=== PATIENT | female | born 1970 | race Two or more races ===

== ENCOUNTER 2017-08-12 11:13 | Inpatient (IN) | payer MEDICAID ==
[2017-08-12] MEDS ORDERED: MORPHINE SULFATE 10 MG/ML INJ IV ONE (11:42)
--- NOTE | 2017-08-12 11:43 | ER Document Report ---
ED Medical Screen (RME) - General Chief Complaint: Abdominal Pain Stated Complaint: ABDOMINAL PAIN Time Seen by Provider: 08/12/17 11:38 Notes: Patient is a 47-year-old female who presents with 2 days of abdominal pain. Initially started left upper quadrant, but has now spread diffusely. Vomited once yesterday, but no longer nauseous. PE: Uncomfortable. Diffuse abdominal tenderness. Normal bowel sounds. I have greeted and performed a rapid initial assessment of this patient. A comprehensive ED assessment and evaluation of the patient, analysis of test results and completion of the medical decision making process will be conducted by additional ED providers. TRAVEL OUTSIDE OF THE [place] IN LAST 30 DAYS: No - Related Data Allergies/Adverse Reactions: No Known Allergies Allergy (Verified 08/12/17 11:34) Past Medical History - Social History Chew tobacco use (# tins/day): No Frequency of alcohol use: None Drug Abuse: None Renal/ Medical History: Denies: Hx Peritoneal Dialysis Physical Exam - Vital signs Vitals: Temp Pulse Resp BP Pulse Ox 98.0 F 87 12 116/80 100 08/12/17 11:26 08/12/17 11:26 08/12/17 11:26 08/12/17 11:26 08/12/17 11:26 Course - Vital Signs Vital signs: Temp Pulse Resp BP Pulse Ox 98.0 F 87 12 116/80 100 08/12/17 11:26 08/12/17 11:26 08/12/17 11:26 08/12/17 11:26 08/12/17 11:26
[2017-08-12] MEDS ORDERED: HYDROMORPHONE HCL INJ/PF 2 MG/ML AMPULE IV ONE (11:54)
[2017-08-12 12:13] LABS: ABSOLUTE BASOPHILS # (AUTO) 0.1 10^3/uL (0.0-0.2); ABSOLUTE EOSINOPHILS # (AUTO) 0.1 10^3/uL (0.0-0.6); ABSOLUTE LYMPHOCYTES (AUTO) 1.1 10^3/uL (0.5-4.7); ABSOLUTE MONOCYTES (AUTO) 0.4 10^3/uL (0.1-1.4); BASOPHILS % (AUTO) 0.5 % (0-2); EOSINOPHILS % (AUTO) 1.1 % (0-6); HEMATOCRIT 34.6 % (36.0-47.0); HEMOGLOBIN 11.3 g/dL (12.0-15.5); LYMPHOCYTES % (AUTO) 11.3 % (13-45); MEAN CORPUSCULAR HEMOGLOBIN 28.9 pg (27.0-33.4); MEAN CORPUSCULAR HGB CONC 32.8 g/dL (32.0-36.0); MEAN CORPUSCULAR VOLUME 88 fl (80-97); PLATELET COUNT 211 10^3/uL (150-450); RED BLOOD COUNT 3.93 10^6/uL (3.72-5.28); SEGMENTED NEUTROPHILS % (AUTO) 83.1 % (42-78); TOTAL CELLS COUNTED % (AUTO) 100 %; WHITE BLOOD COUNT 9.6 10^3/uL (4.0-10.5)
[2017-08-12 12:35] LABS: ALANINE AMINOTRANSFERASE 27 U/L (9-52); ALBUMIN 4.2 g/dL (3.5-5.0); ALKALINE PHOSPHATASE 37 U/L (38-126); ANION GAP 9 (5-19); ASPARTATE AMINO TRANSFERASE 19 U/L (14-36); BILIRUBIN,DIRECT 0.1 mg/dL (0.0-0.4); BILIRUBIN,TOTAL 0.6 mg/dL (0.2-1.3); BLOOD UREA NITROGEN 13 mg/dL (7-20); CALCIUM 9.3 mg/dL (8.4-10.2); CARBON DIOXIDE 30 mmol/L (22-30); CHLORIDE 105 mmol/L (98-107); GLUCOSE 98 mg/dL (75-110); LIPASE 76.2 U/L (23-300); POTASSIUM 3.8 mmol/L (3.6-5.0); SODIUM 143.7 mmol/L (137-145)
[2017-08-12] MEDS ORDERED: ONDANSETRON HCL INJ/PF 4 MG/2 ML SDV ONE (12:46)
[2017-08-12] MEDS ORDERED: NEOSTIGMINE METHYLSULFATE 10 MG/10 ML VIAL ONE (12:46)
[2017-08-12] MEDS ORDERED: SUCCINYLCHOLINE CHLORIDE INJ 200 MG/10 ML VIAL ONE (12:46)
[2017-08-12] MEDS ORDERED: GLYCOPYRROLATE INJ 0.4 MG/2 ML VIAL ONE (12:46)
[2017-08-12] MEDS ORDERED: ROCURONIUM BROMIDE INJ 50 MG/5 ML VIAL IV ONE (12:46)
--- NOTE | 2017-08-12 12:51 | ER Document Report ---
ED General - General Chief Complaint: Abdominal Pain Stated Complaint: ABDOMINAL PAIN Time Seen by Provider: 08/12/17 11:38 Mode of Arrival: Ambulatory Information source: Patient Notes: 47-year-old female presents with complaints of abdominal pain that started last night. Patient notes last night is in left upper quadrant, now notes that the pain has become generalized all throughout. She denies any fevers or chills admits to mild nausea without vomiting. Patient denies any urinary complaints TRAVEL OUTSIDE OF THE [place] IN LAST 30 DAYS: No - HPI Onset: Yesterday Onset/Duration: Sudden Quality of pain: Cramping, Sharp Severity: Mild Pain Level: 2 Associated symptoms: Nausea, Other Exacerbated by: Denies Relieved by: Denies Similar symptoms previously: No Recently seen / treated by doctor: No - Related Data Allergies/Adverse Reactions: No Known Allergies Allergy (Verified 08/12/17 11:34) Past Medical History - Social History Smoking Status: Never Smoker Cigarette use (# per day): No Chew tobacco use (# tins/day): No Smoking Education Provided: No Frequency of alcohol use: None Drug Abuse: None Family History: Reviewed & Not Pertinent Patient has suicidal ideation: No Patient has homicidal ideation: No Renal/ Medical History: Denies: Hx Peritoneal Dialysis Past Surgical History: Reports: Hx Abdominal Surgery - ovary removal Review of Systems - Review of Systems Notes: REVIEW OF SYSTEMS: CONSTITUTIONAL : Denies fever, chills, or sweats. Denies recent illness. EENT: Denies eye, ear, throat, or mouth pain or symptoms. Denies nasal or sinus congestion or discharge. Denies throat, tongue, or mouth swelling or difficulty swallowing. CARDIOVASCULAR: Denies chest pain. Denies palpitations or racing or irregular heart beat. Denies ankle edema. RESPIRATORY: Denies cough, cold, or chest congestion. Denies shortness of breath, difficulty breathing, or wheezing. GASTROINTESTINAL: generalized abd pain. GENITOURINARY: Denies difficulty urinating, painful urination, burning, frequency, blood in urine, or discharge. FEMALE GENITOURINARY: Denies vaginal bleeding, heavy or abnormal periods, irregular periods. Denies vaginal discharge or odor. MUSCULOSKELETAL: Denies back or neck pain or stiffness. Denies joint pain or swelling. SKIN: Denies rash, lesions or sores. HEMATOLOGIC : Denies easy bruising or bleeding. LYMPHATIC: Denies swollen, enlarged glands. NEUROLOGICAL: Denies confusion or altered mental status. Denies passing out or loss of consciousness. Denies dizziness or lightheadedness. Denies headache. Denies weakness or paralysis or loss of use of either side. Denies problems with gait or speech. Denies sensory loss, numbness, or tingling. Denies seizures. PSYCHIATRIC: Denies anxiety or stress. Denies depression, suicidal ideation, or homicidal ideation. ALL OTHER SYSTEMS REVIEWED AND NEGATIVE. PHYSICAL EXAMINATION: GENERAL: Well-appearing, well-nourished and in no acute distress. HEAD: Atraumatic, normocephalic. EYES: Pupils equal round and reactive to light, extraocular movements intact, conjunctiva are normal. ENT: Nares patent, oropharynx clear without exudates. Moist mucous membranes. NECK: Normal range of motion, supple without lymphadenopathy LUNGS: Breath sounds clear to auscultation bilaterally and equal. No wheezes rales or rhonchi. HEART: Regular rate and rhythm without murmurs ABDOMEN: guarding generalized tenderness all throughout worsened left upper quadrant. Female : deferred Musculoskeletal: Normal range of motion, no pitting or edema. No cyanosis. NEUROLOGICAL: Cranial nerves grossly intact. Normal speech, normal gait. Normal sensory, motor exams PSYCH: Normal mood, normal affect. SKIN: Warm, Dry, normal turgor, no rashes or lesions noted. Dictation was performed using [employer] voice recognition software Physical Exam - Vital signs Vitals: Temp Pulse Resp BP Pulse Ox 98.0 F 87 12 116/80 100 08/12/17 11:26 08/12/17 11:26 08/12/17 11:26 08/12/17 11:26 08/12/17 11:26 Course - Re-evaluation Re-evalutation: 08/12/17 12:51 Patient's lab work thus far is benign however she does have generalized abdominal pain CT has been ordered to rule out any intra-abdominal issue 08/12/17 14:55 Dr Tammie oneill, he will evaluate 08/12/17 15:[address] is concerning for an intra-abdominal bleed, source is unknown at this time, the surgeon will take the patient to the operating room immediately to evaluate with expiratory laparotomy - Vital Signs Vital signs: Temp Pulse Resp BP Pulse Ox 98.0 F 87 12 116/80 100 08/12/17 11:26 08/12/17 11:26 08/12/17 11:26 08/12/17 11:26 08/12/17 11:26 - Laboratory Result Diagrams: 08/12/17 11:55 08/12/17 11:55 Laboratory results interpreted by me: 08/12/17 08/12/17 08/12/17 11:55 11:55 13:00 Hgb 11.3 L Hct 34.6 L Seg Neutrophils % 83.1 H Lymphocytes % 11.3 L Alkaline Phosphatase 37 L Urine Ketones TRACE H Urine Ascorbic Acid 20 H - Diagnostic Test Radiology reviewed: Image reviewed - Free fluid noted in abdomen on CT abdomen with oral and IV contrast, Reports reviewed Discharge - Discharge Clinical Impression: Free fluid in the abdomen, Intra abdominal hemorrhage Condition: Critical Disposition: ADMITTED INPATIENT Admitting Provider: Surgicalist Unit Admitted: [facility]
[2017-08-12 13:44] LABS: APPEARANCE,URINE SLIGHTLY-CLOUDY; BILIRUBIN,URINE NEGATIVE (NEGATIVE); COLOR,URINE YELLOW; GLUCOSE, URINE NEGATIVE (NEGATIVE); KETONES,URINE TRACE mg/dL (NEGATIVE); LEUKOCYTE ESTERASE,URINE NEGATIVE (NEGATIVE); NITRITE,URINE NEGATIVE (NEGATIVE); PROTEIN,URINE NEGATIVE (NEGATIVE); URINE SPECIFIC GRAVITY 1.025; UROBILINOGEN,URINE NEGATIVE mg/dL (<2.0)
--- NOTE | 2017-08-12 15:00 | RADIOLOGY REPORT (SQ) ---
EXAM DESCRIPTION: CT ABD/PELVIS WITH IV ORAL COMPLETED DATE/TIME: 08/12/2017 2:41 pm REASON FOR STUDY: LUQ, LLQ, RLQ pain and tenderness COMPARISON: None. TECHNIQUE: CT scan of the abdomen and pelvis performed using helical scanning technique with dynamic intravenous contrast injection. Patient drank a small amount of oral contrast. Images reviewed with lung, soft tissue, and bone windows. Reconstructed coronal and sagittal MPR images reviewed. Delayed images for evaluation of the urinary system also acquired. All images stored on PACS. All CT scanners at this facility use dose modulation, iterative reconstruction, and/or weight based d osing when appropriate to reduce radiation dose to as low as reasonably achievable (ALARA). [facility]: Dose Right [facility]: CareDose [facility]: Dose Right [facility]: Teradose 4D [facility]: GiftLauncher CONTRAST TYPE AND DOSE: contrast/concentration: Isovue 370.00 mg/ml; Total Contrast Delivered: 69.0 ml; Total Saline Delivered: 52.1 ml RENAL FUNCTION: Creatinine 0.66 RADIATION DOSE: CT Rad equipment meets quality standard of care and radiation dose reduction techniq ues were employed. CTDIvol: NaN - NaN mGy. DLP: 0 mGy-cm.. LIMITATIONS: None. FINDINGS: In the left upper quadrant, between loops of bowel along the greater curvature of stomach, intermediate density fluid collection is present, 10 cm craniocaudad by 7.4 cm AP x 5.2 cm transvers e. This measures 75 Hounsfield units in density and is worrisome for hematoma or blood. No fluid fl uid level with IV contrast to suggest active extravasation at this time. There is a small to moderate amount of fluid under the right hemidiaphragm between the liver and diap hragm, along the right and left pericolic gutters, and throughout the pelvic cul-de-sac. In the right adnexa, a 6 cm diameter enhancing mass is present, most likely a pedunculated fibroid of f the rightward dorsal uterus. A right ovarian mass or hematoma could not be excluded. Patient's HC G is negative, making ruptured ectopic unlikely. These findings were discussed with Dr. Kristen mitchell in the emergency room, 1445 hours 08/12/2017. There is no free intraperitoneal air. LOWER CHEST: No significant findings. No nodules or infiltrates. LIVER: Normal size. No biliary ductal dilatation. subcentimeter cysts are present in the left and r ight lobe liver. Normal enhancement of the main portal vein and hepatic veins. SPLEEN: Normal size. No focal lesions. PANCREAS: No masses. No significant calcifications. No adjacent inflammation or peripancreatic fluid collections. Pancreatic duct not dilated. GALLBLADDER: No identified stones by CT criteria. No inflammatory changes to suggest cholecystitis. ADRENAL GLANDS: No significant masses or asymmetry. RIGHT KIDNEY AND URETER: No solid masses. No significant calcifications. No hydronephrosis or hyd roureter. LEFT KIDNEY AND URETER: No solid masses. No significant calcifications. No hydronephrosis or hydr oureter. AORTA AND VESSELS: No aneurysm. No dissection. Renal arteries, SMA, celiac without stenosis. RETROPERITONEUM: No retroperitoneal adenopathy, hemorrhage or masses. BOWEL AND PERITONEAL CAVITY: Trace fluid as above. Left upper quadrant fluid has Hounsfield units khan ggestive of hematoma. Patient drank oral contrast. There is no CT evidence of bowel obstruction. APPENDIX: Normal. PELVIS: As above. Urinary bladder unremarkable ABDOMINAL WALL: No masses. No hernias. BONES: No significant or acute findings. OTHER: No other significant finding. IMPRESSION: Fluid in the abdomen with left upper quadrant fluid collection density worrisome for hem orrhage or hematoma. Patient's test is negative as per the ED doctor. Indeterminate mass in the right adnexa, could represent a pedunculated fibroid or hemorrhagic right ovarian cyst or tumo r. COMMENT: Pertinent findings on the imaging study reported as a CRITICAL RESULT to RASHAAD WRIGHT MD at14:45 on 08/12/2017. Category of Critical Result: free intraperitoneal hemorrhage TECHNICAL DOCUMENTATION: JOB ID: [id number] Quality ID # [id number]: Final reports with documentation of one or more dose reduction techniques (e.g., Au tomated exposure control, adjustment of the mA and/or kV according to patient size, use of iterative reconstruction technique) 2010 [employer]- All Rights Reserved Reading location - IP/workstation name: [facility]
[2017-08-12] MEDS ORDERED: NORMAL SALINE 1000 ML 1,000 ML IV ONE ×2 (15:16)
[2017-08-12] MEDS ORDERED: NORMAL SALINE 250 ML IV PRN ×3 (15:16)
--- NOTE | 2017-08-12 15:32 | PDOC H&P ---
History of Present Illness Admission Date/PCP: 08/12/17 Patient complains of: Abdominal pain History of Present Illness: RAISA MARS is a 47 year old female with a 12 hours hx of abdominal pain, unrelenting. A CT scan A/P has been done revealing a large amount of hemoperitoneum with no obvious cause. She has a previous hx of ovariectomy ( side not sure) for cyst. She is a healthy person and denies previous abdominal pain, abdominal pathology, bleeding dyathesis, or other systemic disorders. According to the radiologist urologic surgeon, there might be some pathology in the right adnexa area, but it cannot be properly evaluated because of the large amount of blood, particularly located in the left upper quadrant. She denies a recent or close to recent hx of trauma. She denies hematemesis, hematochetia, or melena Past Surgical History Past Surgical History: Reports: Other - unilateral ovariectomy for cysts (side not known) Social History Smoking Status: Never Smoker Frequency of Alcohol Use: None Family History Family History: Reviewed & Not Pertinent Parental Family History Reviewed: No Children Family History Reviewed: No Sibling(s) Family History Reviewed.: No Medication/Allergy Home Medications: No Home Medications 08/12/17 Allergies/Adverse Reactions: No Known Allergies Allergy (Verified 08/12/17 11:34) Physical Exam Vital Signs: Temp Pulse Resp BP Pulse Ox 98.0 F 87 12 116/80 100 08/12/17 11:26 08/12/17 11:26 08/12/17 11:26 08/12/17 11:26 08/12/17 11:26 Intake & Output 08/11/17 08/12/17 08/13/17 06:59 06:59 06:59 Weight 64 kg General appearance: PRESENT: no acute distress Head exam: PRESENT: atraumatic Eye exam: PRESENT: EOMI Mouth exam: PRESENT: dry mucosa Neck exam: PRESENT: JVD Respiratory exam: PRESENT: clear to auscultation kimberly Cardiovascular exam: PRESENT: RRR GI/Abdominal exam: PRESENT: diminished bowel sounds, rebound, tenderness - diffusely Rectal exam: PRESENT: deferred Extremities exam: PRESENT: full ROM Musculoskeletal exam: PRESENT: full ROM Results Laboratory Results: 08/12/17 11:55 08/12/17 11:55 08/12/17 08/12/17 08/12/17 11:55 11:55 13:00 WBC 9.6 RBC 3.93 Hgb 11.3 L Hct 34.6 L MCV 88 MCH 28.9 MCHC 32.8 RDW 13.0 Plt Count 211 Seg Neutrophils % 83.1 H Lymphocytes % 11.3 L Monocytes % 4.0 Eosinophils % 1.1 Basophils % 0.5 Absolute Neutrophils 8.0 Absolute Lymphocytes 1.1 Absolute Monocytes 0.4 Absolute Eosinophils 0.1 Absolute Basophils 0.1 Sodium 143.7 Potassium 3.8 Chloride 105 Carbon Dioxide 30 Anion Gap 9 BUN 13 Creatinine 0.66 Est GFR ( Amer) > 60 Est GFR (Non-Af Amer) > 60 Glucose 98 Calcium 9.3 Total Bilirubin 0.6 AST 19 ALT 27 Alkaline Phosphatase 37 L Total Protein 7.0 Albumin 4.2 Lipase 76.2 Urine Color YELLOW Urine Appearance SLIGHTLY-CLOUDY Urine pH 6.0 Ur Specific [place] 1.025 Urine Protein NEGATIVE Urine Glucose (UA) NEGATIVE Urine Ketones TRACE H Urine Blood NEGATIVE Urine Nitrite NEGATIVE Ur Leukocyte Esterase NEGATIVE Urine WBC (Auto) 2 Urine RBC (Auto) 2 Impressions: Abdomen/Pelvis CT 08/12/17 00:00 IMPRESSION: Fluid in the abdomen with left upper quadrant fluid collection density worrisome for hemorrhage or hematoma. Patient's test is negative as per the ED doctor. Indeterminate mass in the right adnexa, could represent a pedunculated fibroid or hemorrhagic right ovarian cyst or tumor. Assessment & Plan - Diagnosis (1) Intra abdominal hemorrhage Is this a current diagnosis for this admission?: Yes - Plan Summary Plan Summary: A/ Abdominal pain with peritoineal signs Hemoperitoneum on unknown cause stable VS at this time H/H = 11.3/34/6 P/ NS 1 L bolus, then 125 mL /hr, do not overinfuse as it will promote more bleeding Emergent exploratory laparotomy, control of bleeding, central venous line placement T&C x 2 units EKG Correia catheter placement preop Stat communication with Dr. Soto OB-Security Expert for possible intraoperative consult Procedure, risks, benefits, complications, the possibility to bowel resection, mass removal, and ostomy have been discussed with the patient, she understands all above, her questions have been answered, and she agrees to proceed
[2017-08-12] MEDS ORDERED: FENTANYL CITRATE INJ/PF 250 MCG/5 ML AMPULE ONE (16:14)
[2017-08-12] MEDS ORDERED: FENTANYL CITRATE INJ/PF 100 MCG/2 ML AMPUL ONE (16:14)
[2017-08-12] MEDS ORDERED: ACETAMINOPHEN 100 ML IV ONE (16:14)
[2017-08-12] MEDS ORDERED: MIDAZOLAM 2 MG/2 ML INJ ONE (16:14)
[2017-08-12] MEDS ORDERED: PROPOFOL INJ 200 MG/20 ML VIAL IV ONE (16:14)
[2017-08-12] MEDS ORDERED: CEFOXITIN SODIUM 2 GM in DEXTROSE 5%-WATER 100 ML IV PRN (16:16)
[2017-08-12] MEDS ORDERED: FENTANYL CITRATE INJ/PF 100 MCG/2 ML AMPUL IV PRN ×3 (17:03)
[2017-08-12] MEDS ORDERED: DIPHENHYDRAMINE HCL 50 MG/ML VIAL IV PRN (17:03)
[2017-08-12] MEDS ORDERED: MEPERIDINE HCL/PF INJ 25 MG/1 ML DISP.SYRIN IV PRN (17:03)
[2017-08-12] MEDS ORDERED: PROMETHAZINE HCL INJ 25 MG/1 ML VIAL IV PRN ×2 (17:03)
[2017-08-12] MEDS ORDERED: LIDOCAINE 0.5%/EPINEPHRINE INJ 50 ML VIAL ONE (17:23)
--- NOTE | 2017-08-12 19:14 | Operative Report ---
Nonrecallable Operative Report DATE OF SURGERY: 08/12/17 PREOPERATIVE DIAGNOSIS: Hemoperitoneum POSTOPERATIVE DIAGNOSIS: Same, bruising left colon, bleeding meserentic vessel transverse colon, hematoma lesses sac, partial thickness injury of right transverse colon OPERATION: Exploratory laparotomy. Control of bleeding left transverse colon mesenteric vessel. Evacuation of lesser sac hematoma. Repair of right transverse colon partial thikness injury SURGEON: SOO WILEY ANESTHESIA: GA - plus 40 mL 0.5% lidicaine with epinephrine TISSUE REMOVED OR ALTERED: none COMPLICATIONS: none ESTIMATED BLOOD LOSS: 300 mL INTRAOPERATIVE FINDINGS: 1) 300 mL hemoperitineum. 2) Bruising left colkon. 3 ) hematoma of lesser sac. 4) Bleeding left transverse colon mesentery vessel. 5) partial thickness injury right transverse colon PROCEDURE: see dictation
[2017-08-12] MEDS ORDERED: ONDANSETRON HCL INJ/PF 4 MG/2 ML SDV IV PRN (19:31)
[2017-08-12 20:19] LABS: HEMATOCRIT 31.7 % (36.0-47.0); HEMOGLOBIN 10.4 g/dL (12.0-15.5); MEAN CORPUSCULAR HEMOGLOBIN 28.9 pg (27.0-33.4); MEAN CORPUSCULAR HGB CONC 32.8 g/dL (32.0-36.0); MEAN CORPUSCULAR VOLUME 88 fl (80-97); PLATELET COUNT 205 10^3/uL (150-450); RED BLOOD COUNT 3.59 10^6/uL (3.72-5.28); RED CELL DISTRIBUTION WIDTH 13.2 % (11.5-14.0)
[2017-08-12 20:29] LABS: ANION GAP 7 (5-19); BLOOD UREA NITROGEN 9 mg/dL (7-20); CALCIUM 7.7 mg/dL (8.4-10.2); CARBON DIOXIDE 26 mmol/L (22-30); CHLORIDE 107 mmol/L (98-107); GLUCOSE 145 mg/dL (75-110); POTASSIUM 3.6 mmol/L (3.6-5.0); SODIUM 140.1 mmol/L (137-145)
[2017-08-12 20:41] LABS: WHITE BLOOD COUNT 26.9 10^3/uL (4.0-10.5)
--- NOTE | 2017-08-12 20:54 | OPERATIVE REPORT E ---
Operative Report NAME: RAISA MARS : 1970 AGE: 47Y DATE OF SURGERY: 08/12/2017 ROOM: ED42 PREOPERATIVE DIAGNOSIS: HEMOPERITONEUM. POSTOPERATIVE DIAGNOSES: 1. HEMOPERITONEUM. 2. BRUISING, LEFT COLON. 3. LARGE HEMATOMA OF THE LESSER SAC. 4. TORN TRANSVERSE COLON MESENTERIC VESSEL IN THE LEFT UPPER QUADRANT. 5. PARTIAL-THICKNESS INJURY OF THE RIGHT TRANSVERSE COLON. OPERATIONS: 1. Exploratory laparotomy. 2. Controlled bleeding of mesenteric torn vessel. 3. Repair of partial-thickness injury of right transverse colon. 4. Evacuation hematoma lesser sac SURGEON: SOO WILEY M.D. ANESTHESIA: General plus 40 mL of 0.5% lidocaine with epinephrine. ESTIMATED BLOOD LOSS: About 300 mL of blood were found in the abdomen. FLUIDS: 1600. URINE OUTPUT: 250. DRAINS: None. COMPLICATIONS: None. INDICATION AND FINDINGS: This is a 47-year-old female who comes to the emergency room complaining of diffuse abdominal pain that started yesterday evening. A CAT scan was done, revealing a large amount of hemoperitoneum of unknown cause. The decision was done to take the patient to surgery emergently to identify the cause of the hemoperitoneum. The procedure, risks, benefits and complications were explained to the patient, who understood all of the above and decided to proceed. PROCEDURE: Once in the operating room, patient placed in supine position. General anesthesia induced by endotracheal intubation. The abdomen was prepped and draped in the usual fashion. An incision was made just below the umbilicus, down to the symphysis pubis. The peritoneal cavity was entered by dividing the linea alba. A large amount of hemoperitoneum was identified. This was suctioned and dry laps were placed in the patient's abdominal cavity. The right and left upper and lower quadrants were packed, as well as the lower pelvis. The packs in the right and left lower quadrants of the pelvis were then removed, and no obvious area of bleeding was identified. The uterus, the left ovary, appeared to be intact, with no evidence of active bleeding. The right overy was missing. The small bowel was run in a proximal to distal fashion and was found to be free from disease. A large amount of blood was then noted in the left and the right upper quadrants. The incision was then extended superiorly, almost just below the xiphoid, and a Bookwalter retractor was then applied to improve exposure. A large amount of free blood was noted in the left upper quadrant, just below the diaphragm. This was removed with suction and dry laps. Following this, exploration of the left upper quadrant revealed a large hematoma located in the lesser sac. This was opened by dividing the lesser omentum. The lesser sac was entered and a large hematoma was identified and removed. Examination of the spleen revealed no injuries, as well as examination of the pancreas and the stomach. However, a bleeding vessel belonging to the left transverse colon mesentery was identified. This was double-ligated, completely divided, with control of the bleeding. The left upper quadrant was then irrigated with normal saline until clear, and packed with dry sponges. The right upper quadrant was then examined. A moderate amount of blood was noted in the upper and inferior wall of the liver. This was aspirated and dry laps were then applied. Examination of the right transverse colon revealed some areas of injury, as demonstrated by partial duskiness of the colon wall. These areas were 2 patches, about a fourth of an inch in diameter, and decision was made to treat these injuries conservatively by placing multiple Lembert 2-0 silk sutures. After this was accomplished, the peritoneal cavity was irrigated with multiple liters of normal saline, which were fully aspirated, and packed with dry laps. These were then removed sequentially. No active bleeding was noted. After this was accomplished, the small bowel was replaced within the peritoneal cavity, together with the colon, and a large piece of greater omentum was then tacked circumferentially around the area of repair of the right transverse colon to improve chance of healing of the colonic injury with interrupted, simple silk 3-0 sutures. All laps were removed and checked. No active bleeding was noted. The abdominal wall was closed with running #1 looped PDS suture. The subcutaneous tissue was irrigated and the skin was closed with lexie. A sterile dressing was applied together with a binder. The patient was then extubated and transferred to the recovery room in satisfactory condition. DICTATING PHYSICIAN: SOO WILEY M.D. [id number] PHY#: [id number] ID: [id number] JOB#: [id number] ACCT: [id number] cc:SOO WILEY M.D. > BRIGHTD
--- NOTE | 2017-08-12 21:40 | EKG REPORT ---
SEVERITY:- NORMAL ECG - SINUS RHYTHM : Confirmed by: Mariano Damon 12-Aug-2017 21:39:32
[2017-08-12] MEDS: FAMOTIDINE INJ/PF 20 MG/2 ML SDV IV SCH (21:48)
[2017-08-12] MEDS: MORPHINE SULFATE 10 MG/ML INJ IV PRN (21:49)
[2017-08-12] MEDS: NORMAL SALINE 1000 ML 1,000 ML IV PRN (21:49)
[2017-08-12] MEDS ORDERED: HYDROMORPHONE HCL INJ/PF 2 MG/ML AMPULE IV PRN (23:44)
[2017-08-13] MEDS: CEFOXITIN SODIUM 2 GM in DEXTROSE 5%-WATER 100 ML IV SCH ×2 (01:41→10:41)
[2017-08-13] MEDS: MORPHINE SULFATE 10 MG/ML INJ IV PRN ×4 (01:42→21:08)
[2017-08-13 05:00] LABS: HEMATOCRIT 28.8 % (36.0-47.0); HEMOGLOBIN 9.4 g/dL (12.0-15.5); MEAN CORPUSCULAR HEMOGLOBIN 28.7 pg (27.0-33.4); MEAN CORPUSCULAR HGB CONC 32.6 g/dL (32.0-36.0); MEAN CORPUSCULAR VOLUME 88 fl (80-97); PLATELET COUNT 171 10^3/uL (150-450); RED BLOOD COUNT 3.26 10^6/uL (3.72-5.28); RED CELL DISTRIBUTION WIDTH 13.1 % (11.5-14.0)
[2017-08-13 05:13] LABS: ANION GAP 9 (5-19); BLOOD UREA NITROGEN 10 mg/dL (7-20); CALCIUM 7.7 mg/dL (8.4-10.2); CARBON DIOXIDE 24 mmol/L (22-30); CHLORIDE 109 mmol/L (98-107); GLUCOSE 104 mg/dL (75-110); SODIUM 142.2 mmol/L (137-145)
[2017-08-13] MEDS: NORMAL SALINE 1000 ML 1,000 ML IV PRN ×2 (07:08→18:33)
[2017-08-13] MEDS ORDERED: HYDROMORPHONE HCL INJ/PF 2 MG/ML AMPULE IV PRN (08:00)
--- NOTE | 2017-08-13 09:26 | PDOC PROGRESS REPORT ---
Subjective Progress Note for:: 08/13/17 Subjective:: sleepy but comfortable and arousable Reason For Visit: ABDOMINAL SURGERY Physical Exam Vital Signs: Temp Pulse Resp BP Pulse Ox 98.7 F 89 16 131/74 H 100 08/13/17 07:36 08/13/17 07:36 08/13/17 07:36 08/13/17 07:36 08/13/17 07:36 Intake & Output 08/12/17 08/13/17 08/14/17 06:59 06:59 06:59 Intake Total 16504 Output Total 9150 Balance 2094 Weight 64 kg General appearance: PRESENT: no acute distress Respiratory exam: PRESENT: clear to auscultation kimberly Cardiovascular exam: PRESENT: RRR GI/Abdominal exam: PRESENT: soft, other - dressing C/D/I Results Laboratory Results: 08/13/17 04:20 08/13/17 04:20 08/12/17 08/12/17 08/13/17 20:09 20:09 04:20 WBC 26.9 H D 14.0 H RBC 3.59 L 3.26 L Hgb 10.4 L 9.4 L Hct 31.7 L 28.8 L MCV 88 88 MCH 28.9 28.7 MCHC 32.8 32.6 RDW 13.2 13.1 Plt Count 205 171 Sodium 140.1 Potassium 3.6 Chloride 107 Carbon Dioxide 26 Anion Gap 7 BUN 9 Creatinine 0.58 Est GFR ( Amer) > 60 Est GFR (Non-Af Amer) > 60 Glucose 145 H Calcium 7.7 L 08/13/17 04:20 WBC RBC Hgb Hct MCV MCH MCHC RDW Plt Count Sodium 142.2 Potassium 4.0 Chloride 109 H Carbon Dioxide 24 Anion Gap 9 BUN 10 Creatinine 0.59 Est GFR ( Amer) > 60 Est GFR (Non-Af Amer) > 60 Glucose 104 Calcium 7.7 L Impressions: Abdomen/Pelvis CT 08/12/17 00:00 IMPRESSION: Fluid in the abdomen with left upper quadrant fluid collection density worrisome for hemorrhage or hematoma. Patient's test is negative as per the ED doctor. Indeterminate mass in the right adnexa, could represent a pedunculated fibroid or hemorrhagic right ovarian cyst or tumor. Assessment & Plan - Diagnosis (1) Intra abdominal hemorrhage Is this a current diagnosis for this admission?: Yes - Plan Summary Plan Summary: A/ POD#1 after laparotomy for hemoperitoneum and control of bleeding VSS, AF Good UO minimal NGT output Drop in H/H most likely dilutional and secondary to hemorrhage P/ OOB, up in chair, ambulate Continuous pulse oxymeter at bed side IS q 1hour
[2017-08-13] MEDS: FAMOTIDINE INJ/PF 20 MG/2 ML SDV IV SCH ×2 (10:42→21:08)
[2017-08-14] MEDS: NORMAL SALINE 1000 ML 1,000 ML IV PRN ×2 (03:49→16:23)
[2017-08-14 05:08] LABS: HEMATOCRIT 26.2 % (36.0-47.0); HEMOGLOBIN 8.7 g/dL (12.0-15.5); MEAN CORPUSCULAR HEMOGLOBIN 29.2 pg (27.0-33.4); MEAN CORPUSCULAR HGB CONC 33.3 g/dL (32.0-36.0); MEAN CORPUSCULAR VOLUME 88 fl (80-97); PLATELET COUNT 155 10^3/uL (150-450); RED BLOOD COUNT 2.98 10^6/uL (3.72-5.28); RED CELL DISTRIBUTION WIDTH 13.1 % (11.5-14.0); WHITE BLOOD COUNT 9.3 10^3/uL (4.0-10.5)
[2017-08-14 05:29] LABS: ANION GAP 10 (5-19); BLOOD UREA NITROGEN 7 mg/dL (7-20); CALCIUM 7.9 mg/dL (8.4-10.2); CARBON DIOXIDE 24 mmol/L (22-30); CHLORIDE 109 mmol/L (98-107); GLUCOSE 90 mg/dL (75-110); POTASSIUM 3.7 mmol/L (3.6-5.0); SODIUM 142.5 mmol/L (137-145)
[2017-08-14] MEDS: FAMOTIDINE INJ/PF 20 MG/2 ML SDV IV SCH ×2 (11:25→22:18)
--- NOTE | 2017-08-14 15:58 | PDOC PROGRESS REPORT ---
Subjective Progress Note for:: 08/14/17 Subjective:: Less abdominal pains + Flatus Reason For Visit: ABDOMINAL SURGERY Physical Exam Vital Signs: Temp Pulse Resp BP Pulse Ox 99.5 F 105 H 16 124/76 100 08/14/17 13:29 08/14/17 13:29 08/14/17 13:29 08/14/17 13:29 08/14/17 13:29 Pulse Oximeter Continuous Start: 08/13/17 09: 27 Freq: RTQ4 Status: Active Document 08/14/17 12:00 JDR (Rec: 08/14/17 13:52 JDR [email or web address]) Pulse Oximetry Assessment Oxygen Saturation (92-100) 100 Oxygen Flow Rate (L/min) 1 Oxygen Delivery Method Nasal Cannula Fraction of Inspired Oxygen (FIO2) 24 Equipment Usage Equipment in Use Continuous SpO2 Machine # 7 Intake & Output 08/13/17 08/14/17 08/15/17 06:59 06:59 06:59 Intake Total 33808 1500 0 Output Total 9150 1400 200 Balance 2095 100 -200 Weight 64 kg Exam: Abd is soft with minimal diffuse tenderness + hypoactive bowel sounds Results Laboratory Results: 08/14/17 04:02 08/14/17 04:02 08/14/17 08/14/17 04:02 04:02 WBC 9.3 RBC 2.98 L Hgb 8.7 L Hct 26.2 L MCV 88 MCH 29.2 MCHC 33.3 RDW 13.1 Plt Count 155 Sodium 142.5 Potassium 3.7 Chloride 109 H Carbon Dioxide 24 Anion Gap 10 BUN 7 Creatinine 0.53 Est GFR ( Amer) > 60 Est GFR (Non-Af Amer) > 60 Glucose 90 Calcium 7.9 L Impressions: Abdomen/Pelvis CT 08/12/17 00:00 IMPRESSION: Fluid in the abdomen with left upper quadrant fluid collection density worrisome for hemorrhage or hematoma. Patient's test is negative as per the ED doctor. Indeterminate mass in the right adnexa, could represent a pedunculated fibroid or hemorrhagic right ovarian cyst or tumor. Assessment & Plan - Diagnosis (1) Intra abdominal hemorrhage Is this a current diagnosis for this admission?: Yes - Time Time Spent with patient: 15-24 minutes - Inpatient Certification Medical Necessity: Significant Comorbidiites Make Outpatient Treatment Too Risky , Need For IV Fluids - Plan Summary Plan Summary: Clamp NGT and possible D/C later today. D/C salvador and get OOB ambulate
[2017-08-14] MEDS: MORPHINE SULFATE 10 MG/ML INJ IV PRN (22:18)
[2017-08-15] MEDS: NORMAL SALINE 1000 ML 1,000 ML IV PRN ×3 (00:23→18:18)
[2017-08-15 05:14] LABS: HEMATOCRIT 23.7 % (36.0-47.0); MEAN CORPUSCULAR HEMOGLOBIN 29.6 pg (27.0-33.4); MEAN CORPUSCULAR HGB CONC 33.7 g/dL (32.0-36.0); MEAN CORPUSCULAR VOLUME 88 fl (80-97); PLATELET COUNT 157 10^3/uL (150-450); RED CELL DISTRIBUTION WIDTH 13.3 % (11.5-14.0); WHITE BLOOD COUNT 8.7 10^3/uL (4.0-10.5)
[2017-08-15 05:34] LABS: ANION GAP 11 (5-19); BLOOD UREA NITROGEN 9 mg/dL (7-20); CALCIUM 7.7 mg/dL (8.4-10.2); CARBON DIOXIDE 22 mmol/L (22-30); CHLORIDE 111 mmol/L (98-107); GLUCOSE 78 mg/dL (75-110); POTASSIUM 3.5 mmol/L (3.6-5.0); SODIUM 143.6 mmol/L (137-145)
[2017-08-15] MEDS: MORPHINE SULFATE 10 MG/ML INJ IV PRN ×4 (08:09→22:10)
[2017-08-15] MEDS: FAMOTIDINE INJ/PF 20 MG/2 ML SDV IV SCH ×2 (09:46→22:02)
[2017-08-15] MEDS ORDERED: DEXTROSE 50%-WATER 25 GM/50 ML DISP.SYRIN IV ONE (13:56)
[2017-08-15] MEDS ORDERED: DEXTROSE 40% GEL 15 GM TUBE X 2 PO PRN (15:01)
[2017-08-15] MEDS ORDERED: DEXTROSE 50%-WATER SYRINGE 25 GM/50 ML DOSE IV PRN (15:01)
[2017-08-15] MEDS ORDERED: DEXTROSE 40% GEL 15 GM TUBE PO PRN (15:01)
[2017-08-15] MEDS ORDERED: GLUCAGON,HUMAN RECOMB 1 MG INJ IM PRN (15:01)
[2017-08-15] MEDS ORDERED: DEXTROSE 50%-WATER SYRINGE 12.5 GM/25 ML DOSE IV PRN (15:01)
--- NOTE | 2017-08-15 16:07 | PDOC PROGRESS REPORT ---
Subjective Progress Note for:: 08/15/17 Subjective:: No Pains. No flatus/bm Reason For Visit: ABDOMINAL SURGERY Physical Exam Vital Signs: Temp Pulse Resp BP Pulse Ox 99.1 F 102 H 16 114/78 97 08/15/17 03:57 08/15/17 14:00 08/15/17 03:57 08/15/17 03:57 08/15/17 11:39 Pulse Oximeter Continuous Start: 08/13/17 09: 27 Freq: RTQ4 Status: Active Document 08/15/17 11:39 TPO (Rec: 08/15/17 11:39 TPO [email or web address]) Pulse Oximetry Assessment Oxygen Saturation (92-100) 97 Oxygen Delivery Method Room Air Fraction of Inspired Oxygen (FIO2) 21 Equipment Usage Equipment in Use Continuous SpO2 Machine # 7 Intake & Output 08/14/17 08/15/17 08/16/17 06:59 06:59 06:59 Intake Total 1500 2975 Output Total 1400 2050 500 Balance 100 925 -500 Weight 67.4 kg Exam: NGT 50 ccs since this am. Will D/C but keep NPO today until + flatus Abd is flat and non tender Results Laboratory Results: 08/15/17 04:10 08/15/17 04:10 08/15/17 08/15/17 04:10 04:10 WBC 8.7 RBC 2.70 L Hgb 8.0 L Hct 23.7 L MCV 88 MCH 29.6 MCHC 33.7 RDW 13.3 Plt Count 157 Sodium 143.6 Potassium 3.5 L Chloride 111 H Carbon Dioxide 22 Anion Gap 11 BUN 9 Creatinine 0.45 L Est GFR ( Amer) > 60 Est GFR (Non-Af Amer) > 60 Glucose 78 Calcium 7.7 L Impressions: Abdomen/Pelvis CT 08/12/17 00:00 IMPRESSION: Fluid in the abdomen with left upper quadrant fluid collection density worrisome for hemorrhage or hematoma. Patient's test is negative as per the ED doctor. Indeterminate mass in the right adnexa, could represent a pedunculated fibroid or hemorrhagic right ovarian cyst or tumor. Assessment & Plan - Diagnosis (1) Intra abdominal hemorrhage Is this a current diagnosis for this admission?: Yes
[2017-08-16] MEDS: MORPHINE SULFATE 10 MG/ML INJ IV PRN ×5 (00:56→22:01)
[2017-08-16] MEDS: NORMAL SALINE 1000 ML 1,000 ML IV PRN (02:16)
[2017-08-16 05:37] LABS: HEMATOCRIT 25.1 % (36.0-47.0); HEMOGLOBIN 8.3 g/dL (12.0-15.5); MEAN CORPUSCULAR HEMOGLOBIN 29.3 pg (27.0-33.4); MEAN CORPUSCULAR HGB CONC 33.1 g/dL (32.0-36.0); MEAN CORPUSCULAR VOLUME 89 fl (80-97); PLATELET COUNT 177 10^3/uL (150-450); RED BLOOD COUNT 2.84 10^6/uL (3.72-5.28); RED CELL DISTRIBUTION WIDTH 13.5 % (11.5-14.0); WHITE BLOOD COUNT 7.4 10^3/uL (4.0-10.5)
[2017-08-16 06:01] LABS: ANION GAP 10 (5-19); BLOOD UREA NITROGEN 5 mg/dL (7-20); CALCIUM 7.9 mg/dL (8.4-10.2); CARBON DIOXIDE 23 mmol/L (22-30); CHLORIDE 110 mmol/L (98-107); GLUCOSE 75 mg/dL (75-110); POTASSIUM 3.4 mmol/L (3.6-5.0); SODIUM 143.4 mmol/L (137-145)
[2017-08-16] MEDS: FAMOTIDINE INJ/PF 20 MG/2 ML SDV IV SCH ×2 (08:06→22:01)
--- NOTE | 2017-08-16 15:30 | PDOC PROGRESS REPORT ---
Subjective Progress Note for:: 08/16/17 Subjective:: mild abdominal pains. Tolerating off NGT No flatus yet Reason For Visit: ABDOMINAL SURGERY Physical Exam Vital Signs: Temp Pulse Resp BP Pulse Ox 98.4 F 88 16 134/84 H 98 08/16/17 11:04 08/16/17 13:52 08/16/17 11:04 08/16/17 11:04 08/16/17 12:00 Pulse Oximeter Continuous Start: 08/13/17 09: 27 Freq: RTQ4 Status: Active Document 08/16/17 12:00 CWH (Rec: 08/16/17 12:35 CWH [email or web address]) Pulse Oximetry Assessment Oxygen Saturation (92-100) 98 Oxygen Delivery Method Room Air Equipment Usage Equipment in Use Continuous SpO2 Machine # 7 Intake & Output 08/15/17 08/16/17 08/17/17 06:59 06:59 06:59 Intake Total 2975 1322 150 Output Total 2050 2750 Balance 925 -1428 150 Weight 67.4 kg Exam: Abd is soft with minimal tenderness lower abdomen. Non distended. Hypoactive BS Results Laboratory Results: 08/16/17 04:27 08/16/17 04:27 08/16/17 08/16/17 04:27 04:27 WBC 7.4 RBC 2.84 L Hgb 8.3 L Hct 25.1 L MCV 89 MCH 29.3 MCHC 33.1 RDW 13.5 Plt Count 177 Sodium 143.4 Potassium 3.4 L Chloride 110 H Carbon Dioxide 23 Anion Gap 10 BUN 5 L Creatinine 0.43 L Est GFR ( Amer) > 60 Est GFR (Non-Af Amer) > 60 Glucose 75 Calcium 7.9 L Impressions: Abdomen/Pelvis CT 08/12/17 00:00 IMPRESSION: Fluid in the abdomen with left upper quadrant fluid collection density worrisome for hemorrhage or hematoma. Patient's test is negative as per the ED doctor. Indeterminate mass in the right adnexa, could represent a pedunculated fibroid or hemorrhagic right ovarian cyst or tumor. Assessment & Plan - Diagnosis (1) Intra abdominal hemorrhage Is this a current diagnosis for this admission?: Yes - Time Time Spent with patient: 15-24 minutes - Plan Summary Plan Summary: Keep NPO except ice chips Continue encourage ambulation Continue IV Fluids HB better at 8.3. Unlikely to need blood transfusion
[2017-08-17] MEDS: DEXTROSE 5%-LACTATED RINGERS 1,000 ML IV PRN ×3 (01:09→18:35)
[2017-08-17] MEDS: MORPHINE SULFATE 10 MG/ML INJ IV PRN ×2 (03:54→23:23)
[2017-08-17] MEDS: FAMOTIDINE INJ/PF 20 MG/2 ML SDV IV SCH ×2 (09:36→21:54)
[2017-08-17] MEDS: DOCUSATE SODIUM 100 MG CAPSULE PO SCH ×2 (09:40→17:35)
[2017-08-17] MEDS ORDERED: KETOROLAC TROMETHAMINE 10 MG TABLET PO PRN (10:10)
--- NOTE | 2017-08-17 10:15 | PDOC PROGRESS REPORT ---
Subjective Progress Note for:: 08/17/17 Subjective:: Patient has no complaints. She is getting up on the halls, walking, no nausea or vomiting, voiding without Correia catheter, still on IV narcotics for pain medicine. Reason For Visit: ABDOMINAL SURGERY Physical Exam Vital Signs: Temp Pulse Resp BP Pulse Ox 99.1 F 83 16 119/83 98 08/17/17 09:34 08/17/17 09:34 08/17/17 09:34 08/17/17 09:34 08/17/17 09:34 Pulse Oximeter Continuous Start: 08/13/17 09: 27 Freq: RTQ4 Status: Active Document 08/17/17 00:00 SFL (Rec: 08/17/17 01:06 SFL [email or web address]) Pulse Oximetry Assessment Equipment Usage Equipment Standby Continuous SpO2 Machine # 7 Intake & Output 08/16/17 08/17/17 08/18/17 06:59 06:59 06:59 Intake Total 1322 3235 Output Total 2750 Balance -1428 3235 General appearance: PRESENT: no acute distress GI/Abdominal exam: PRESENT: other - Initial dressing removed, lexie intact, abdomen appropriately tender no peritoneal signs Results Laboratory Results: 08/16/17 04:27 08/16/17 04:27 Impressions: Abdomen/Pelvis CT 08/12/17 00:00 IMPRESSION: Fluid in the abdomen with left upper quadrant fluid collection density worrisome for hemorrhage or hematoma. Patient's test is negative as per the ED doctor. Indeterminate mass in the right adnexa, could represent a pedunculated fibroid or hemorrhagic right ovarian cyst or tumor. Assessment & Plan - Diagnosis (1) Intra abdominal hemorrhage Is this a current diagnosis for this admission?: Yes Plan: Secondary to transverse colon mesenteric bleed, mechanically controlled following exploratory laparotomy. Patient also noted to have bruising of the right and left colon. Patient is postoperative day 4, doing well, voiding, ambulating, without undue distress Recommendations: 1. Start clear liquids 2. DC narcotics; start Toradol p.o. and IV as needed 3. Replace potassium; 40 mEq p.o. twice daily for today ordered 4. Shower: Hiking in halls 5. Anticipate discharge home in the next 18-24 hours. - Time Time Spent with patient: 15-24 minutes
[2017-08-17] MEDS: KETOROLAC TROMETHAMINE INJ/PF 30 MG/1 ML SDV IV PRN ×2 (11:24→21:54)
[2017-08-17] MEDS: POTASSIUM CHLORIDE 10 MEQ TABLET.SA PO SCH ×2 (11:24→23:21)
[2017-08-18] MEDS: DEXTROSE 5%-LACTATED RINGERS 1,000 ML IV PRN (01:52)
[2017-08-18] MEDS: KETOROLAC TROMETHAMINE INJ/PF 30 MG/1 ML SDV IV PRN ×2 (08:07→17:45)
[2017-08-18] MEDS: DOCUSATE SODIUM 100 MG CAPSULE PO SCH ×2 (09:58→17:44)
[2017-08-18] MEDS: FAMOTIDINE INJ/PF 20 MG/2 ML SDV IV SCH ×2 (09:58→22:13)
[2017-08-18] MEDS ORDERED: DEXTROSE 5%-LACTATED RINGERS 1,000 ML IV PRN (10:03)
--- NOTE | 2017-08-18 10:03 | PDOC PROGRESS REPORT ---
Subjective Progress Note for:: 08/18/17 Subjective:: Feels better. Tolerating liquids well. Having bowel movements. Reason For Visit: ABDOMINAL SURGERY Physical Exam Vital Signs: Temp Pulse Resp BP Pulse Ox 98.3 F 86 16 132/86 H 100 08/18/17 07:34 08/18/17 07:34 08/18/17 07:34 08/18/17 07:34 08/18/17 07:34 Pulse Oximeter Continuous Start: 08/13/17 09: 27 Freq: RTQ4 Status: Active Document 08/18/17 00:00 SFL (Rec: 08/18/17 00:42 SFL [email or web address]) Pulse Oximetry Assessment Equipment Usage Equipment Standby Continuous SpO2 Machine # 7 Intake & Output 08/17/17 08/18/17 08/19/17 06:59 06:59 06:59 Intake Total 3235 4026 Balance 3235 4026 Weight 63.5 kg General appearance: PRESENT: no acute distress, cooperative Respiratory exam: PRESENT: clear to auscultation kimberly Cardiovascular exam: PRESENT: RRR GI/Abdominal exam: PRESENT: other - Soft, nondistended, mild diffuse abdominal tenderness without peritoneal signs. Wound clean dry and intact with no erythema. Extremities exam: PRESENT: other - No swelling and no tenderness. Results Laboratory Results: 08/16/17 04:27 08/16/17 04:27 Impressions: Abdomen/Pelvis CT 08/12/17 00:00 IMPRESSION: Fluid in the abdomen with left upper quadrant fluid collection density worrisome for hemorrhage or hematoma. Patient's test is negative as per the ED doctor. Indeterminate mass in the right adnexa, could represent a pedunculated fibroid or hemorrhagic right ovarian cyst or tumor. Assessment & Plan - Diagnosis (1) Intra abdominal hemorrhage Is this a current diagnosis for this admission?: Yes Plan: Status post exploratory laparotomy. Patient recovering steadily. Will advance her diet. Possible discharge home tomorrow. Intraoperative findings suspicious for trauma however patient denies any history of trauma. I think it is at least worthwhile to have social staff worker interview the patient to make sure that there is no domestic abuse.
[2017-08-19] MEDS: DOCUSATE SODIUM 100 MG CAPSULE PO SCH ×2 (11:08→18:36)
[2017-08-19] MEDS: FAMOTIDINE INJ/PF 20 MG/2 ML SDV IV SCH (11:09)
[2017-08-19 18:07] VITALS: BP 112/78
--- NOTE | 2017-08-19 18:10 | DISCHARGE SUMMARY E ---
Discharge Summary NAME: RAISA MARS : 1970 AGE: 47Y ADMITTED: 08/12/2017 DISCHARGED: 08/19/2017 DISCHARGE DIAGNOSES: 1. HEMOPERITONEUM. 2. BRUISED LEFT COLON. 3. LARGE HEMATOMA OF THE LESSER SAC. 4. TORN TRANSVERSE COLON MESENTERIC VESSEL IN THE LEFT UPPER QUADRANT. 5. PARTIAL THICKNESS INJURY TO THE RIGHT TRANSVERSE COLON. PROCEDURE PERFORMED DURING HOSPITALIZATION: Exploratory laparotomy with controlled bleeding of mesenteric torn vessel and repair of partial thickness injury to the right transverse colon and evacuation of hematoma of the lesser sac. All performed by Dr. Quinonez on August 12, 2017. HOSPITAL COURSE: The patient underwent the above mentioned surgery. She did well postoperatively. She had gradual resumption of bowel function. She was tolerating a diet with good bowel function and good pain control at the end of her stay. The patient is now being discharged to home in good condition. She will follow up with [facility] in 2 weeks. Patient would strongly benefit from a gastroenterology referral as an outpatient. Really unclear of the etiology of her presentation. Patient has assured us multiple times that there has been no history of trauma. DISCHARGE MEDICATIONS: Percocet 1 p.o. q.4 hours p.r.n. pain. Of note, thorough questioning of the patient was performed by the nursing staff as well as the surgeon as well as Inspector [place]. Patient denied any history of trauma, denied any history of domestic abuse. DICTATING PHYSICIAN: JAIME JIMÉNEZ M.D. [id number] PHY#: [id number] ID: [id number] JOB#: [id number] ACCT: [id number] cc:Herman ZAMBRANO M.D. > MTDD
== END 2017-08-19 18:46 | disposition home or self-care (01) | DRG 357 ==
LOC: ER 11:13 → EH 15:43 → 3N 20:49
PROVIDERS: ADMIT Surgery; ATTEND Surgery
PROC: 0W3P0ZZ Control Bleeding in Gastrointestinal Tract, Open Approach (ICD-10-PCS; 2017-08-12)
PROC: 0WCP0ZZ Extirpation of Matter from Gastrointestinal Tract, Open Approach (ICD-10-PCS; 2017-08-12)
PROC: 0DQV0ZZ Repair Mesentery, Open Approach (ICD-10-PCS; principal; 2017-08-12 16:00)
DX: S36.522A Contusion of descending [left] colon, initial encounter (principal); S36.893A Laceration of other intra-abdominal organs, initial encounter; S36.892A Contusion of other intra-abdominal organs, initial encounter; X58.XXXA Exposure to other specified factors, initial encounter; Y93.9 Activity, unspecified; Y92.9 Unspecified place or not applicable
CPT/HCPCS: 36415; 74177; 790; 80048; 80053; 81001; 81025; 82962; 83690; 84703; 85025; 85027; 86850; 86900; 86901; 86920; 93005; 93010; 94002; 94762; 94799; 96374; 99285; J0131; J0330; J0694; J1170; J1885; J2250; J2270; J2405; J2704; J3010; J3490; J7030; S0028